=== PATIENT | female | born 1970 ===

== ENCOUNTER 2020-03-24 09:45 | Inpatient (IN) | payer OTHER ==
[~2020-03-24] VITALS: Ht 160 cm; Wt 61.2 kg
[2020-03-24] MEDS ORDERED: IRON 100 PLUS1 EACH IV (11:08)
[2020-04-01] MEDS ORDERED: PREVACID 24HR15 MG PO (07:01)
[2020-04-01] MEDS ORDERED: OXYC1TAB9 PO (07:04)
== END 2020-04-01 11:36 | disposition home or self-care (01) | DRG 743 ==
LOC: EDSTATUS 09:45 → ADM 09:45 → O/R 03-31 08:20 → OB/GYN 03-31 08:20 → SURH 03-31 09:45 → OB/GYN 03-31 18:20
PROVIDERS: ADMIT Obstetrics & Gynecology Gynecology; ATTEND Obstetrics & Gynecology Gynecology
PROC: 0UT97ZZ Resection of Uterus, Via Natural or Artificial Opening (ICD-10-PCS; principal; 2020-03-31 14:15)
DX: D25.1 Intramural leiomyoma of uterus (principal); N72 Inflammatory disease of cervix uteri; N80.0 Endometriosis of uterus; I10 Essential (primary) hypertension